=== PATIENT | female | born 1995 | race Caucasian/White ===

== ENCOUNTER 2020-01-27 15:04 | Emergency (ER) | payer MEDICAID ==
[~2020-01-27] VITALS: Ht 170.2 cm; Wt 63.5 kg
[2020-01-27 15:13] VITALS: BP 133/89
--- NOTE | 2020-01-27 15:15 | NUR ---
Patient ambulated to bed 1. RN evaluating patient at bedside.
--- NOTE | 2020-01-27 15:25 | NUR ---
bitten by her own dog while attempting to nurse dogs paw---two puncture wounds to left side of face---unknown last tetanus
--- NOTE | 2020-01-27 16:00 | NUR ---
PT REFUSING TO FILE A DOG BITE REPORT. PT'S STATE IT IS HER PERSONAL DOG.
[2020-01-27] MEDS ORDERED: IBUPROFEN 600 MG TAB PO ONE (16:10)
[2020-01-27] MEDS ORDERED: AMOXIL/CLAVULANATE 875/125 MG 1 TAB PO ONE (16:10)
[2020-01-27] MEDS ORDERED: LIDOCAINE/EPI 2% 1:100000 20 ML VIAL INJ ONE (16:10)
--- NOTE | 2020-01-27 16:15 | NUR ---
PT RESTING IN BED, SIDE RAIL X1
--- NOTE | 2020-01-27 16:21 | NUR ---
PT TAKEN TO XRAY VIA WHEELCHAIR
--- NOTE | 2020-01-27 16:53 | NUR ---
LIDOCAINE GIVEN BY ERMD AT BEDSIDE
[2020-01-27] MEDS ORDERED: BACITRACIN OINT 500 UNITS/GM PKT TP ONE (17:07)
--- NOTE | 2020-01-27 17:12 | NUR ---
NON ADHERENT DRESSING AND BANDAID PLACED ON PT WOUND AFTER BACITRACIN APPLIED
[2020-01-27 17:23] VITALS: BP 115/68
--- NOTE | 2020-01-27 17:23 | NUR ---
Patient discharged with v/s stable. Written and verbal after care instructions given and explained. Patient alert, oriented and verbalized understanding of instructions. Ambulatory with steady gait. All questions addressed prior to discharge. ID band removed. Patient advised to follow up with PMD. Rx of AUGMENTIN AND IBUPROFEN given. Patient educated on indication of medication including possible reaction and side effects. Opportunity to ask questions provided and answered.
== END 2020-01-27 17:23 | disposition home or self-care (01) ==
LOC: MED 15:04
DX: S01.81XA Laceration without foreign body of other part of head, initial encounter (principal); W54.0XXA Bitten by dog, initial encounter; Y93.89 Activity, other specified; Y92.89 Other specified places as the place of occurrence of the external cause; Y99.8 Other external cause status
CPT/HCPCS: 70150; 90471; 90715; 99283; J2001